=== PATIENT | male | born 1980 | race Two or more races ===

== ENCOUNTER 2021-07-04 18:26 | Emergency (ER) | payer OTHER ==
[~2021-07-04] VITALS: Ht 175.3 cm; Wt 122.5 kg
[2021-07-04] MEDS ORDERED: ACETAMINOPHEN 325 MG TAB PO ONE (19:30)
[2021-07-04 20:05] VITALS: BP 134/80
== END 2021-07-04 20:12 | disposition home or self-care (01) ==
LOC: ER 18:26
DX: U07.1 COVID-19 (principal); J18.9 Pneumonia, unspecified organism; R53.83 Other fatigue
CPT/HCPCS: 36415; 71045; 87426

== ENCOUNTER 2025-06-19 12:24 | Emergency (ER) | payer OTHER ==
[~2025-06-19] VITALS: Ht 172.7 cm; Wt 132.5 kg
[2025-06-19 12:26] VITALS: BP 155/90; PULSE 115; RESP 19; TEMP 98.3; O2SAT 95
== END 2025-06-19 16:06 | disposition left against medical advice (07) ==
LOC: ER 12:24
DX: R51.9 Headache, unspecified (principal); M54.2 Cervicalgia; Z53.21 Procedure and treatment not carried out due to patient leaving prior to being seen by health care provider